=== PATIENT | female | born 1990 | race Caucasian/White ===

== ENCOUNTER 2020-06-22 21:57 | Emergency (ER) | payer MEDICAID, OTHER ==
[~2020-06-22] VITALS: Ht 149.9 cm; Wt 84.0 kg
[~2020-06-22 21:57] MED LIST: TYLENOL
[2020-06-22] MEDS ORDERED: IBUPROFEN 600MG TABLET PO ONE (22:45)
[2020-06-23] MEDS ORDERED: IBUP-2029 MT (00:43)
[2020-06-23 01:13] VITALS: BP 120/68
== END 2020-06-23 01:14 | disposition home or self-care (01) ==
LOC: ER 21:57
DX: S40.011A Contusion of right shoulder, initial encounter (principal); S20.212A Contusion of left front wall of thorax, initial encounter; Z90.49 Acquired absence of other specified parts of digestive tract; W01.0XXA Fall on same level from slipping, tripping and stumbling without subsequent striking against object, initial encounter; Y93.89 Activity, other specified; Y92.018 Other place in single-family (private) house as the place of occurrence of the external cause
CPT/HCPCS: 71100; 73030; 81025; 93005; 99284

== ENCOUNTER 2020-09-10 13:57 | Emergency (ER) | payer MEDICAID, OTHER ==
[~2020-09-10] VITALS: Ht 149.9 cm; Wt 100.0 kg
[~2020-09-10 13:57] MED LIST changes: +IBUP-2029 MT
[2020-09-10 14:50] VITALS: BP 100/56
[2020-09-10] MEDS ORDERED: ACETAMINOPHEN 325MG TABLET PO STA (15:45)
[2020-09-10] MEDS ORDERED: CIPDEX LEFT EAR (16:24)
[2020-09-10] MEDS ORDERED: ACET-2708 PO (16:24)
== END 2020-09-10 16:51 | disposition home or self-care (01) ==
LOC: ER 15:24
DX: H60.92 Unspecified otitis externa, left ear (principal); H61.22 Impacted cerumen, left ear; D64.9 Anemia, unspecified
CPT/HCPCS: 99283

== ENCOUNTER 2021-07-30 12:51 | Emergency (ER) | payer OTHER ==
[~2021-07-30] VITALS: Ht 149.9 cm; Wt 86.0 kg
[~2021-07-30 12:51] MED LIST changes: +ACET-2708 PO; +CIPDEX LEFT EAR
[2021-07-30] MEDS ORDERED: SODIUM CHLORIDE 0.9% 1,000 ML IV ONE (13:00)
[2021-07-30 13:24] LABS: BASOPHILS % 0.5 % (0.0-2.0); HEMATOCRIT. 36.7 % (36.0-48.0); HEMOGLOBIN. 12.3 g/dL (12.0-16.0); LYMPHOCYTES % 26.9 % (20.0-50.0); MEAN CORPUSCULAR HEMOGLOBIN 27.3 pg (28.0-32.0); MEAN CORPUSCULAR VOLUME 81.1 fL (81.0-99.0); MEAN PLATELET VOLUME 7.8 fl (7.4-10.4); MONOCYTES % 4.9 % (2.0-8.0); NEUTROPHILS % 66.7 % (40.0-76.0); PLATELET 266 x1000/uL (130-400); RED BLOOD CELL COUNT 4.52 mill/uL (4.2-5.4); RED CELL DISTRIBUTION WIDTH 15.2 % (11.6-14.6)
[2021-07-30 13:32] LABS: CHLORIDE 109 mEq/L (98-107)
[2021-07-30 13:53] LABS: B-HCG QUANTITATIVE 75483 mIU/mL (<3)
[2021-07-30 15:32] LABS: CLARITY URINE CLEAR (CLEAR); COLOR URINE YELLOW (YELLOW); KETONES URINE 1+ (NEGATIVE); LEUKOCYTE ESTERASE URINE TRACE (NEGATIVE); NITRITE URINE NEGATIVE (NEGATIVE); OCCULT BLOOD URINE 3+ (NEGATIVE); PROTEIN URINE NEGATIVE (NEGATIVE); SPECIFIC GRAVITY URINE 1.004 (1.005-1.030); UROBILINOGEN URINE 0.2 E.U./dL (0.2-1.0)
[2021-07-30 16:47] VITALS: BP 99/60
== END 2021-07-30 19:16 | disposition home or self-care (01) ==
LOC: ER 12:51
DX: O26.891 Other specified pregnancy related conditions, first trimester (principal); O20.0 Threatened abortion; O99.011 Anemia complicating pregnancy, first trimester; D64.9 Anemia, unspecified; Z3A.12 12 weeks gestation of pregnancy; Z90.49 Acquired absence of other specified parts of digestive tract; Z98.890 Other specified postprocedural states
CPT/HCPCS: 36415; 76801; 76817; 80053; 81003; 81025; 84702; 85025; 86850; 86900; 86901; 93005; 96360; 99285; J7030; Z7610

== ENCOUNTER 2022-01-27 01:36 | Observation (INO) | payer OTHER ==
[~2022-01-27] VITALS: Ht 149.9 cm; Wt 84.8 kg
== END 2022-01-27 05:00 | disposition home or self-care (01) ==
LOC: 8 EST LDRP 01:36
PROVIDERS: ADMIT Obstetrics & Gynecology; ATTEND Obstetrics & Gynecology
DX: O26.893 Other specified pregnancy related conditions, third trimester (principal); R03.0 Elevated blood-pressure reading, without diagnosis of hypertension; O62.9 Abnormality of forces of labor, unspecified; Z3A.38 38 weeks gestation of pregnancy
CPT/HCPCS: 59025; G0378; 99281

== ENCOUNTER 2024-06-25 22:51 | Emergency (ER) | payer SELFPAY ==
[2024-06-25 23:05] VITALS: PULSE 110; RESP 18; O2SAT 99
== END 2024-06-25 23:48 | disposition left against medical advice (07) ==
LOC: ER 22:51
DX: K08.89 Other specified disorders of teeth and supporting structures (principal); Z53.21 Procedure and treatment not carried out due to patient leaving prior to being seen by health care provider

== ENCOUNTER 2025-01-10 22:30 | Emergency (ER) | payer OTHER ==
[~2025-01-10] VITALS: Ht 149.9 cm; Wt 86.0 kg
[2025-01-10 22:54] VITALS: TEMP 37; O2SAT 96
[2025-01-11 00:16] LABS: BASOPHILS % 0.4 % (0.0-2.0); EOSINOPHILS % 1.4 % (0.0-5.0); HEMATOCRIT. 40.4 % (36.0-48.0); HEMOGLOBIN. 12.9 g/dL (12.0-16.0); LYMPHOCYTES % 27.6 % (20.0-50.0); MEAN PLATELET VOLUME 8.0 fl (7.4-10.4); MONOCYTES % 4.6 % (2.0-8.0); NEUTROPHILS % 66.0 % (40.0-76.0); PLATELET 316 x1000/uL (130-400); RED BLOOD CELL COUNT 4.98 mill/uL (4.2-5.4); RED CELL DISTRIBUTION WIDTH 14.9 % (11.6-14.6)
[2025-01-11 00:35] LABS: CREATININE 0.7 mg/dL (0.6-1.0); UREA NITROGEN BLOOD < 5 mg/dL (9-23)
[2025-01-11 00:36] LABS: ASPARTATE AMINOTRANSFERASE 20 IU/L (<34)
[2025-01-11 00:37] LABS: BILIRUBIN DIRECT < 0.1 mg/dL (<=3.0); BILIRUBIN TOTAL 0.4 mg/dL (0.1-1.0); PROTEIN TOTAL 8.8 g/dL (6.0-8.3)
[2025-01-11 00:42] LABS: CLARITY URINE CLEAR (CLEAR); COLOR URINE YELLOW (YELLOW); GLUCOSE URINE NEGATIVE (NEGATIVE); KETONES URINE NEGATIVE (NEGATIVE); LEUKOCYTE ESTERASE URINE NEGATIVE (NEGATIVE); NITRITE URINE NEGATIVE (NEGATIVE); OCCULT BLOOD URINE 2+ (NEGATIVE); PH URINE 6.5 (4.5-8.0); PROTEIN URINE NEGATIVE (NEGATIVE); SPECIFIC GRAVITY URINE 1.007 (1.005-1.030); UROBILINOGEN URINE 0.2 E.U./dL (0.2-1.0)
[2025-01-11 00:43] LABS: HCG SCREEN NEGATIVE
[2025-01-11] MEDS: KETOROLAC 15MG/ML VIAL IV ONE (00:45)
[2025-01-11] MEDS: ONDANSETRON HCL 4MG/2ML INJ IV ONE (00:46)
[2025-01-11 01:01] LABS: BACTERIA URINE TRACE; SQUAMOUS EPITHELIAL CELL URINE 1+ /lpf (RARE/1+); WBC URINE 0-2 /hpf (0-2)
[2025-01-11] MEDS ORDERED: IBUP-1455 MT (02:24)
[2025-01-11 03:03] VITALS: BP 113/37; PULSE 78; RESP 18; O2SAT 100
[2025-01-11] MEDS ORDERED: IOHEXOL-300 100 ML BOTTLE ONE (07:18)
== END 2025-01-11 03:06 | disposition home or self-care (01) ==
LOC: ER 22:30
DX: S16.1XXA Strain of muscle, fascia and tendon at neck level, initial encounter (principal); R10.9 Unspecified abdominal pain; Z90.49 Acquired absence of other specified parts of digestive tract; V43.52XA Car driver injured in collision with other type car in traffic accident, initial encounter; Y92.410 Unspecified street and highway as the place of occurrence of the external cause; Y93.89 Activity, other specified; Y99.8 Other external cause status
CPT/HCPCS: 99285; 71045; 36415; 71260; 96374; 96375; 80076; 80048; 81003; 81025; 84703; 83690; 85025; 72125; 74177; J1885; Q9967; J2405